=== PATIENT | male | born 1995 | race Caucasian/White ===

== ENCOUNTER 2017-05-28 16:44 | Emergency (ER) | payer BC, MEDICAID ==
[2017-05-28] MEDS ORDERED: Hydrocodone/APAP 10 mg/325 mg Tab PO STA (20:55)
[2017-05-28] MEDS ORDERED: Hydrocodone/APAP 10 mg/325 mg Tab ONE (20:59)
--- NOTE | 2017-05-29 08:58 | Diagnostic Imaging Report ---
Left foot (2 views) HISTORY: Pain, trauma No acute bony abnormalities. No fractures. Joint spaces appear normal. IMPRESSION: 1. No acute abnormalities. In the presence of recent trauma and persistent symptoms, a repeat radiograph in 5-7 days may be helpful for detection of a subtle or occult fracture.
--- NOTE | 2017-05-29 09:00 | Diagnostic Imaging Report ---
Left ankle (single view, AP), portable Soft tissue swelling noted over the lateral aspect of the ankle. There is a small sliver-like density adjacent to the inferior margin of the lateral malleolus. The finding may be associated with an avulsion fracture. IMPRESSION: 1. Small sliver-like bony density adjacent to the lateral malleolus suggesting avulsion fracture. 2. Soft tissue swelling If possible, additional views would provide for further assessment.
--- NOTE | 2017-05-29 09:01 | Diagnostic Imaging Report ---
Left tibia/fibula (2 views) HISTORY: Pain, trauma The distalmost portions of the tibia and fibula are off the nebop-nn-pres. There is a cortical defect noted in the region of the tibial tubercle with a bony density. The overall appearance suggests a chronic etiology. Clinical correlation is needed. No other focal abnormalities. IMPRESSION: 1. Somewhat limited exam 2. Changes about the tibial tubercle that appear chronic. However, clinical correlation is needed.
--- NOTE | 2017-05-29 14:17 | ED Physician Chart ---
ED Chief Complaint/HPI - Patient Information Date Seen:: 05/28/17 Time Seen:: 18:00 Chief Complaint:: INJURY TO FALL TWO NIGHTS AGO. History of Present Illness:: THE PATIENT WAS AT A [employer] IN [place] WHEN HE MISSED STEPPED AND FELL DOWN AN ESTIMATED 7 TO 8 STAIRS. IS BEEN INTERMITTENTLY ABLE TO WALK WEIGHT- BEARING IN THE LEFT LOWER EXTREMITY. HE RATES THE PAIN A 7/10 SEVERITY AND IT IS MUCH WORSE ONE WEIGHT-BEARING. PAST MEDICAL HISTORY POSITIVE FOR RIGHT FEMUR FRACTURE. Allergies:: Allergies Allergy/AdvReac Type Severity Reaction Status Date / Time No Known Allergies Allergy Verified 05/28/17 16:46 ED Review of Systems - Review of Systems General/Constitutional: No fever, No chills, No weight loss, No weakness, No diaphoresis, Edema, No loss of appetite Skin: No skin lesions, No rash, No bruising Head: No headache ( THERE WAS NO INJURY TO THE HEAD OR NECK AND NO LOSS OF CONSCIOUSNESS.) Eyes: No loss of vision, Diplopia ENT: No sore throat Neck: No neck pain, No stiffness, No mass noted Cardio Vascular: No chest pain, No palpitations, edema ( EDEMA IN THE REGION OF THE LEFT ANKLE.) Pulmonary: No SOB, No sputum, No wheezing GI: No nausea, No vomiting, No constipation, No hematemesis G/U: No dysuria, No hematuria Musculoskeletal: Bone or joint pain, No back pain, No muscle pain ( THE PATIENT HAS PAIN EXTENDING FROM THE ANTERIOR KNEE DOWN INTO THE FOOT OF THE RIGHT LOWER EXTREMITY.) Allergic/Immuno: No urticaria, No angioedema Neurological: No syncope, No paresthesia, No headache, No dizziness ( THE PATIENT HAS WEAKNESS IN THE LEFT LOWER EXTREMITY SECONDARY TO PAINFUL INJURY.), No confusion, No vertigo ED Past Medical History - Past Medical History Past Medical History: No significant medical hx ( MENTIONED ABOVE THE PATIENT HAS A PRIOR RIGHT FEMUR FRACTURE AND THE LEFT MANDIBULAR FRACTURE.) Family Medical History - Family Member Mother History Unknown: Yes ED Physical Exam - Physical Examination General/Constitutional: Awake, Well-developed, well-nourished, Alert, No distress, Non-toxic appearing Other Gen/Cons comments:: NOT AMBULATORY. Head: Atraumatic Eyes: Lids, conjuctiva normal, PERRL, EOMI Skin: Nl inspection, No skin lesions, No ecchymosis, No lymphadenopathy ENMT: External ears, nose nl, TM canals nl, Nasal exam nl, Lips, teeth, gums nl , Oropharynx nl, Tonsils nl Neck: Nontender, Full ROM w/o pain, No JVD, No mass, No stridor Respiratory: Nl effort/Exclusion, Clear to Auscultation, No Wheeze/Rhonchi/Rales Cardio Vascular: RRR, No murmur, gallop, rubs, NL S1 S2, Carotid/Femoral/Distal pulses equal bilaterally GI: No tenderness/rebounding/guarding, No organomegaly, No hernia, Nondistended , No mass/bruits, No McBurney tenderness Other GI comments:: RECTAL EXAMINATION DEFERRED AT MY DISCRETION. : No CVA tenderness Other Extremities comments:: THE PATIENT HAS DIFFUSE TENDERNESS ON PALPATION OVER THE ANTERIOR AND MEDIAL ASPECTS OF THE TIBIA. HE ALSO HAS BOTH LATERAL AND MEDIAL TENDERNESS OVER THE RIGHT ANKLE. THERE IS ALSO DIFFUSE TENDERNESS AND SWELLING OF THE LEFT FOOT. THERE WAS DIFFUSE TENDERNESS OVER THE METACARPAL'S AND PHALANGES OF THE LEFT FOOT. NO GROSS DEFORMITIES ARE PRESENT. RANGE OF MOTION WAS RESTRICTED BY PAIN. Neuro/Psych: Alert/oriented, Normal sensory exam, Normal motor strength, Mood normal, No focal deficits Misc: Normal back, No paraspinal tenderness ED Labs/Radiology/EKG Results - Radiology Results Results: PATIENT HAD AP AND LATERAL VIEWS TAKEN OF THE LEFT TIBIA AND FIBULA, THE LEFT ANKLE AND THE LEFT FOOT. X-RAYS WERE OF GOOD QUALITY AND NO SUBLUXATIONS OR DISLOCATIONS WERE IDENTIFIED. MILD SOFT TISSUE SWELLING OVER THE DORSUM OF THE FOOT. IMPRESSION NO ACUTE ORTHOPEDIC INJURIES IDENTIFIED. ED Assessment - Assessment General Assessment: CASE SUMMARY: THIS 22-YEAR-OLD MALE SUSTAINED INJURIES TO THE LEFT LOWER EXTREMITY WHEN HE FELL DOWN 7 TO 8 STAIRS TWO NIGHTS AGO. SINCE THEN HE HAS MARKEDLY LIMITED WEIGHT BRING IN THE LEFT LOWER EXTREMITIES WITH DECREASED RANGE OF MOTION AND STRENGTH. RADIOLOGIC EXAMINATION WAS NEGATIVE FOR ANY FRACTURES OR SUBLUXATIONS INVOLVING THE KNEE, LOWER LEG, ANKLE, AND FEET. PATIENT WAS FITTED WITH A POSTERIOR MOLDED SPLINT FOR COMFORT. HE WAS PROVIDED WITH CRUTCHES AND CRUTCH TRAINING. PATIENT WAS GIVEN A PRESCRIPTION FOR NORCO 7.5/325, DISPENSED 12, GIVEN THE USUAL PRECAUTIONS REGARDING MIXING IT WITH ALCOHOL, NOT DRIVING WITHIN SIX HOURS OF TAKING THE MEDICATION, OR PRIOR TO ANY ACTIVITY REQUIRING ALERTNESS OR COORDINATION. PATIENT WAS DISCHARGED IN [place] SHAPE ADVISED TO FOLLOW UP WITH HIS PRIMARY CARE PHYSICIAN IS NOT SIGNIFICANTLY BETTER IN 7 TO 10 DAYS. HE WAS ALSO ADVISED THAT IT WAS SAFE TO GO AHEAD AND TAKE SUPPLEMENTAL IBUPROFEN ALONG WITH THE NORCO. MDM DDX OF FALL DOWN STAIRS: NO OPEN FX'SDUE TO PHYSICAL EXAMINATION AND X-RAY STUDIES. NO CLOSED LONG BONE FRACTURES DUE TO RADIOGRAPHIC STUDIES. NO VASCULAR INJURIES BASED ON PHYSICAL EXAMINATION. NO CERVICAL SPINE OR HEAD INJURIES BASED ON THE PATIENT'S HISTORY AND PHYSICAL EXAMINATION. ED Septic Shock - . Is Septic Shock (SBP<90, OR Lactate>4 mmol\L) present?: No ED Reassessment (Disposition) - Reassessment Reassessment Condition:: Improved - Diagnosis Diagnosis:: CONTUSIONS IN THE LEFT LOWER EXTREMITY INVOLVING THE LEG, ANKLE AND FOOT. SPRAINED LEFT ANKLE. - Aftercare/Follow up Instructions Aftercare/Follow-Up Instructions:: Counseled pt regarding lab results/diagnosis & need follow up Medication Prescribed:: NORCO 7.5/325, PRESCRIPTION FOR SIX WITH THE USUAL PRECAUTIONS. ED Discharge Plan - Patient Disposition Admit/Discharge/Transfer: PT DISCHARGED HOME Condition at Disposition: Improved Prescriptions: Hydrocodone/Acetaminophen [[place] 7.5-325 Tablet] 1 each PO Q6H PRN #12 tablet PRN Reason: Pain (Severe) Instructions: Ankle Sprain, [id number], Foot Contusion, [id number] Additional Instructions: Take medication as prescribed. Do not drink alcohol while taking pain medication and do not perform activities that require alertness. Avoid driving for 6 hours after taking pain medication. Follow up with your primary care provider as soon as possible. Return to ED immediately if symptoms worsen. Forms: Work Release Form
== END 2017-05-28 21:08 | disposition home or self-care (01) ==
LOC: ER 16:44
DX: S90.02XA Contusion of left ankle, initial encounter (principal); S90.32XA Contusion of left foot, initial encounter; X58.XXXA Exposure to other specified factors, initial encounter; Y93.89 Activity, other specified; Y92.89 Other specified places as the place of occurrence of the external cause; Y99.8 Other external cause status
CPT/HCPCS: 73590-TC-LT; 73600-LT-TC; 73620-TC-LT; Z7502

== ENCOUNTER 2017-08-13 13:38 | Emergency (ER) | payer MEDICAID ==
--- NOTE | 2017-08-13 13:49 | ED Physician Chart ---
ED Chief Complaint/HPI - Patient Information Date Seen:: 08/13/17 Time Seen:: 13:40 Chief Complaint:: RRF Pain History of Present Illness:: onset x one month of RRF pain after a basketball jamming type injury one month ago; pt denies any other trauma, H/as, S/T, LOC, neck pain, C/P, SOB, Abd. Pain , visual or gait changes, weakness, dizziness, paresthesias, vertigo, or urinary s/s; pt's last tetanus shot: < 5 years; UTD Allergies:: Allergies Allergy/AdvReac Type Severity Reaction Status Date / Time No Known Allergies Allergy Verified 05/28/17 16:46 Historian:: Patient Review:: Nurse's Note Reviewed ED Review of Systems - Review of Systems General/Constitutional: No fever, No chills, No weight loss, No weakness, No diaphoresis, No edema, No loss of appetite Skin: No skin lesions, No rash, No bruising Head: No headache, No light-headedness Eyes: No loss of vision, No pain, No diplopia ENT: No earache, No nasal drainage, No sore throat, No tinnitus Neck: No neck pain, No swelling, No thyromegaly, No stiffness, No mass noted Cardio Vascular: No chest pain, No palpitations, No PND, No orthopnea, No edema Pulmonary: No SOB, No cough, No sputum, No wheezing GI: No nausea, No vomiting, No diarrhea, No pain, No melena, No hematochezia, No constipation, No hematemesis G/U: No dysuria, No frequency, No hematuria, No nacturia Musculoskeletal: No bone or joint pain, No back pain, No muscle pain Endocrine: No polyuria, No polydipsia Psychiatric: No prior psych history, No depression, No anxiety, No suicidal ideation, No homicidal ideation, No auditory hallucination, No visual hallucination Hematopoietic: No bruising, No lymphadenopathy Allergic/Immuno: No urticaria, No angioedema Neurological: No syncope, No focal symptoms, No weakness, No paresthesia, No headache, No seizure, No dizziness, No confusion, No vertigo ED Past Medical History - Past Medical History Obtainable: Yes Past Medical History: No significant medical hx Family History: None Social History: Non Smoker, No Alcohol, No Drug Use, Single, Employed Surgical History: None Psychiatricy History: None Medication: Reviewed Family Medical History - Family Member Mother History Unknown: Yes ED Physical Exam - Physical Examination General/Constitutional: Awake, Well-developed, well-nourished, Alert, No distress, GCS 15, Non-toxic appearing, Ambulatory Head: Atraumatic Eyes: Lids, conjuctiva normal, PERRL, EOMI Skin: Nl inspection, No rash, No skin lesions, No ecchymosis, Well hydrated, No lymphadenopathy ENMT: External ears, nose nl, TM canals nl, Nasal exam nl, Lips, teeth, gums nl , Oropharynx nl, Tonsils nl Neck: Nontender, Full ROM w/o pain, No JVD, No nuchal rigidity, No bruit, No mass, No stridor Other Neck comments:: supple; no meningeal signs; no cervical tenderness Respiratory: Nl effort/Exclusion, Clear to Auscultation, No Wheeze/Rhonchi/Rales Cardio Vascular: RRR, No murmur, gallop, rubs, NL S1 S2, Carotid/Femoral/Distal pulses equal bilaterally GI: No tenderness/rebounding/guarding, No organomegaly, No hernia, Normal BS's, Nondistended, No mass/bruits, No McBurney tenderness, Rectum exam nl Other GI comments:: no pulsatile masses : No CVA tenderness Extremities: No tenderness or effusion, Full ROM, normal strength in all extremities, No edema, Normal digits & nails Other Extremities comments:: RRF: + Deformity and tenderness; no loss of ROMs; no ligament instability or laxity; good motor, tendon, and sensory functions; good NV functions Neuro/Psych: Alert/oriented, DTR's symmetric, Normal sensory exam, Normal motor strength, Judgement/insight normal, Mood normal, Normal gait, No focal deficits Misc: Normal back, No paraspinal tenderness ED Labs/Radiology/EKG Results - Radiology Results Comments:: NAD; No Fx/Dislocations ED Septic Shock - . Is Septic Shock (SBP<90, OR Lactate>4 mmol\L) present?: No ED Reassessment (Disposition) - Reassessment Reassessment:: pt is asymptomatic upon discharge Reassessment Condition:: Improved - Diagnosis Diagnosis:: Right Ring Finger Sprain; Sprains and Strains; RRF Pain; RRF Injury; S/P Sports Injury - Aftercare/Follow up Instructions Aftercare/Follow-Up Instructions:: Counseled pt regarding lab results/diagnosis & need follow up, Refer to Discharge Instructions, Counseled pt & family regarding lab results/diagnosis & need follow up - Patient Disposition Discharge/Transfer:: Home Condition at Disposition:: Stable, Improved (RTER prn if existing s/s reoccur and/or get worse and/or any other new s/s occur; X-Rays Instructions; ACIs given for all above Dx; Refer to Hand Specialist/Orthopedist [facility]; F/U with PMD in one day or prn; RTER prn if concerned)
--- NOTE | 2017-08-13 14:06 | Diagnostic Imaging Report ---
Right fourth finger (3 views) HISTORY: Pain, trauma No acute bony abnormalities. No fractures. Joint spaces appear normal. IMPRESSION: 1. No acute abnormalities.
== END 2017-08-13 15:00 | disposition home or self-care (01) ==
LOC: ER 13:38
DX: S63.614A Unspecified sprain of right ring finger, initial encounter (principal); W23.0XXA Caught, crushed, jammed, or pinched between moving objects, initial encounter; Y93.67 Activity, basketball; Y92.89 Other specified places as the place of occurrence of the external cause; Y99.8 Other external cause status
CPT/HCPCS: 73140-TC-F8; Z7502

== ENCOUNTER 2018-07-08 14:39 | Emergency (ER) | payer MEDICAID ==
--- NOTE | 2018-07-08 17:39 | ED Physician Chart ---
ED Chief Complaint/HPI - Patient Information Date Seen:: 07/08/18 Time Seen:: 16:00 Allergies:: Allergies Allergy/AdvReac Type Severity Reaction Status Date / Time No Known Allergies Allergy Verified 05/28/17 16:46 Vitals:: Vital Signs - 8 hr 07/08/18 07/08/18 15:59 17:06 Temp 98.3 F 97.6 F HR 87 66 RR 16 16 BP 107/71 109/58 O2 Sat % 100 Review:: Nurse's Note Reviewed ED Review of Systems - Review of Systems General/Constitutional: No fever Skin: No skin lesions Head: No headache Eyes: No loss of vision ENT: No earache Neck: No neck pain Cardio Vascular: No chest pain Pulmonary: No SOB GI: No vomiting G/U: No dysuria Musculoskeletal: Bone or joint pain (no sign heat several months proble old history trauma) Endocrine: No polyuria Psychiatric: No prior psych history Hematopoietic: No bruising Allergic/Immuno: No urticaria Neurological: No syncope ED Past Medical History - Past Medical History Past Medical History: No significant medical hx Family Medical History - Family Member Mother History Unknown: Yes ED Physical Exam - Physical Examination General/Constitutional: Awake, Well-developed, well-nourished, Alert, No distress, GCS 15, Non-toxic appearing, Ambulatory Head: Atraumatic Eyes: Lids, conjuctiva normal Skin: No rash ENMT: External ears, nose nl Neck: Full ROM w/o pain Respiratory: Nl effort/Exclusion Cardio Vascular: RRR GI: No tenderness/rebounding/guarding Extremities: No tenderness or effusion ( from no warmth redness) ED Septic Shock - . Is Septic Shock (SBP<90, OR Lactate>4 mmol\L) present?: No - <6hrs of presentation: Vital Signs: Vital Signs - 8 hr 07/08/18 07/08/18 15:59 17:06 Temp 98.3 F 97.6 F HR 87 66 RR 16 16 BP 107/71 109/58 O2 Sat % 100 ED Reassessment (Disposition) - Reassessment Reassessment Condition:: Unchanged (indocin no nsaid with pmd ortho no eccess exer)
== END 2018-07-08 17:20 | disposition short-term general hospital (02) ==
LOC: ER 14:39
DX: M25.562 Pain in left knee (principal)
CPT/HCPCS: 29505